=== PATIENT | male | born 1955 | race Caucasian/White ===

== ENCOUNTER 2017-09-02 00:30 | Emergency (ER) | payer BC ==
[~2017-09-02] VITALS: Ht 172.7 cm; Wt 94.4 kg
[~2017-09-02 00:30] MED LIST: ALTACE10 MG PO; ECOTRIN325 MG PO; FLEXERIL10 MG PO; NAPROSYN500 MG PO; TOPROL XL100 MG PO; ZOCOR80 MG PO
[2017-09-02 00:55] LABS: APPEARANCE CLEAR ((CLEAR)); BILIRUBIN NEGATIVE; BLOOD NEGATIVE; COLOR YELLOW ((YELLOW)); GLUCOSE (STRIP) NEGATIVE; KETONES NEGATIVE; LEUKOCYTES NEGATIVE; NITRITE NEGATIVE; PROTEIN (STRIP) NEGATIVE; SPECIFIC GRAVITY 1.019 (1.000-1.030); UCUL ADDED? NO; UROBILINOGEN 0.2 MG/DL (0.2-1.0)
[2017-09-02 01:11] LABS: HEMATOCRIT 46.7 % (38.0-50.0); HEMOGLOBIN 16.1 G/DL (12.5-16.6); MCH 28.5 PG (29.0-34.0); MCHC 34.5 G/DL (30.0-36.0); MCV 82.8 FL (86-99); PLATELET COUNT 194 K/uL (156-360); RBC DIS.WIDTH-CV 13.7 % (11.8-14.6); RBC DIS.WIDTH-SD 40.9 % (39-53); RED BLOOD COUNT 5.64 M/uL (4.00-5.50); WHITE BLOOD COUNT 16.1 K/uL (4.1-10.2)
[2017-09-02 01:18] LABS: ALBUMIN 4.4 g/dL (3.2-4.8); CHLORIDE 102 mEq/L (99-109); POTASSIUM 4.6 mEq/L (3.7-5.4); SODIUM 138 mEq/L (136-147)
[2017-09-02 01:21] LABS: GLUCOSE 142 mg/dL (70-99); TOTAL PROTEIN 7.5 g/dL (6.4-8.3)
[2017-09-02 01:24] LABS: ALKALINE PHOSPHATASE 65 IU/L (3-129); CREATININE 0.9 mg/dL (0.6-1.3); GFR ESTIMATE (CALCULATED) > 59 mL/min/ (58.99-99999)
[2017-09-02 01:25] LABS: UREA NITROGEN (BUN) 20 mg/dL (9-23)
[2017-09-02 01:26] LABS: AST (GOT) 23 IU/L (2-34)
[2017-09-02 01:27] LABS: ALT (GPT) 28 IU/L (3-49)
[2017-09-02 01:28] LABS: LIPASE 16 U/L (1.0-51.0)
[2017-09-02] MEDS ORDERED: LEVAQUIN750 MG PO (04:14)
[2017-09-02] MEDS ORDERED: ZOFRAN4 MG PO (04:14)
[2017-09-02] MEDS ORDERED: FLAGYL500 MG PO (04:14)
[2017-09-02] MEDS ORDERED: PERCOCET 5/31 TABLET PO (04:14)
[2017-09-02 04:49] VITALS: BP 134/89
== END 2017-09-02 04:50 | disposition home or self-care (01) ==
LOC: EME 00:30
DX: K57.92 Diverticulitis of intestine, part unspecified, without perforation or abscess without bleeding (principal); I10 Essential (primary) hypertension; E78.5 Hyperlipidemia, unspecified; Z95.5 Presence of coronary angioplasty implant and graft
CPT/HCPCS: 74177; 80053; 81003; 83690; 85027; 99281; 99285; J1885; J2405; J7030